=== PATIENT | female | born 1975 | race African-American/Black ===

== ENCOUNTER 2018-02-14 08:28 | Emergency (ER) | payer SELFPAY ==
[~2018-02-14] VITALS: Ht 157.5 cm; Wt 108.0 kg
[2018-02-14] MEDS ORDERED: KETOROLAC TROMETHAMINE 60 MG/2 ML VIAL IM ONE (09:00)
--- NOTE | 2018-02-14 10:09 | Diagnostic Imaging Report ---
Examination: CT head without contrast Clinical Indication: Severe headache; left temporal head pain. Technique: Transaxial noncontrast images from the skull base through the vertex were obtained. Sagittal and coronal reformatted images were done. Dose modulation, iterative reconstruction, and/or weight based adjustment of the mA/kV was utilized to reduce the radiation dose to as low as reasonably achievable. Comparison: None. Findings: Scalp: No abnormalities. Bones: Intact. No fractures. No blastic or lytic lesions. Brain sulci: Appropriate for patient's age. Ventricles: Normal in size and configuration. No hydrocephalus. Extra-axial space: No abnormalities. Parenchyma: No abnormal densities. No masses, hemorrhage, or acute or chronic cortical based vascular insults. Suprasellar region: No abnormalities. Craniocervical junction: The foramen magnum is patent. No Chiari one malformation. Impression: No intracranial abnormality. Signed by: Dr. Ester Hassan M.D. on 02/14/2018 10:05 AM
[2018-02-14 11:43] VITALS: BP 150/93
== END 2018-02-14 11:53 | disposition home or self-care (01) ==
LOC: ER 08:28
DX: G44.89 Other headache syndrome (principal); G50.0 Trigeminal neuralgia; J44.9 Chronic obstructive pulmonary disease, unspecified
CPT/HCPCS: 70450; 99283; J1885

== ENCOUNTER 2018-11-02 22:44 | Emergency (ER) | payer OTHER ==
[~2018-11-02] VITALS: Ht 157.5 cm; Wt 108.0 kg
--- OUTSIDE RECORDS SUMMARY | 2018-11-02 22:47 | XMS REPORT ---
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 Problem Name Problem Code Onset Date Status Entry Date Provider Comment Standard Description Annotate Annual exam V72.31 Active Dianna Fonseca MD Routine gynecological examination Mammogram yearly screening V76.12 Active Dianna Fonseca MD Other screening mammogram MORBID OBESITY Active Dianna Fonseca MD Morbid obesity Screening for cervical cancer V76.2 Active Dianna Fonseca MD Screening for malignant neoplasms of the cervix Screening for diabetes mellitus V77.1 Active Dianna Fonseca MD Screening for diabetes mellitus Screening for hyperlipidemia V77.91 Active Dianna Fonseca MD Screening for lipoid disorders Medication List Medication Instructions Start Date Stop Date Generic Name NDC Status Provider Patient Instruction No Drug Therapy Prescribed - none known did ask Dianna Fonseca MD Vital Signs Date Name Value Unit Range Description blood pressure, diastolic 86 mm[Hg] BP saab blood pressure, systolic 129 mm[Hg] BP sys height E&M 61.75 [in_us] Bdy height pulse rate E&M 85 /min Heart rate respiratory rate E&M 18 /min Resp rate temperature E&M 98 [degF] Body temperature weight E&M 249 [lb_av] Weight Measured Diagnostic Results Date Name Value Unit Range Description Lab Report: Chlamydia/GC Amplification - Microbiology Neisseria gonorrhoeae DNA probe Negative Negative Lab Report: Lipid Panel, Chlamydia/GC Amplification, Hemoglobin A1c - Chemistry cholesterol, serum 154 mg/dL [id number] 7807/04/29 LDL cholesterol, serum 76 mg/dL 0-99 hemoglobin A1C, blood, as % of total hemoglobin 5.7 % 4.8-5.6 triglyceride, serum, fasting 73 mg/dL 0-149 HDL cholesterol, serum 63 mg/dL >39 Lab Report: Chlamydia/GC Amplification - Lab chlamydia DNA probe Negative Negative Lab Report: Lipid Panel, Chlamydia/GC Amplification, Hemoglobin A1c - Chemistry very low density lipoproteins 15 mg/dL 5-40 Procedures Code Procedure Name Date Entry Date Standard Description [id number] New Patient Well Exam (40 - 64 Yrs) - [address]2948 10:59:25 CDT
--- OUTSIDE RECORDS SUMMARY | 2018-11-02 22:47 | XMS REPORT ---
Author Author [facility] Address Unknown Phone Unavailable Care Team Providers Care Equipment Sterilizer Name Role Phone Shant OCAMPO Unavailable Unavailable Problems This patient has no known problems. Allergies, Adverse Reactions, Alerts This patient has no known allergies or adverse reactions. Medications This patient has no known medications. Results Test Description Test Time Test Comments Text Results Atomic Results Result Comments CT BRAIN WO 2018-02-14 10:03:00 [place] [address] Patient Name: MARLEN GÓMEZ MR #: [id number] : 1975 Age/Sex: 42/F Req #: [id number] Adm Physician: Ordered by: AUSTIN OCAMPO MD Report #: [id number] Location: ER Room/Bed: Procedure: [id number] CT/CT BRAIN WO Exam Date: 02/14/18 Exam Time: 0934 REPORT STATUS: Signed Examination: CT head without contrast Clinical Indication: Severe headache; left temporal head pain. Technique: Transaxial noncontrast images from the skull base through the vertex were obtained. Sagittal and coronal reformatted images were done. Dose modulation, iterative reconstruction, and/or weight based adjustment of the mA/kV was utilized to reduce the radiation dose to as low as reasonably achievable. Comparison: None. Findings: Scalp: No abnormalities. Bones: Intact. No fractures. No blastic or lytic lesions. Brain sulci: Appropriate for patient's age. Ventricles: Normal in size and configuration. No hydroc ephalus. Extra-axial space: No abnormalities. Parenchyma: No abnormal densities. No masses, hemorrhage, or acute or chronic cortical based vascular insults. Suprasellar region: No abnormalities. Craniocervical junction: The foramen magnum is patent. No Chiari one malformation. Impression: No intracranial abnormality. Signed by: Dr. Ester Zarate M.D. on 02/14/2018 10:05 AM Dictated By: ESTER ZARATE MD [id number] Transcribed By: RICHARD on 02/14/18 1005 COPY TO: AUSTIN OCAMPO MD
[2018-11-02] MEDS ORDERED: ACETAMIN/BUTALBITAL/CAFFEINE TAB ONE (23:11)
[2018-11-02] MEDS ORDERED: ONDANSETRON HCL 4 MG ORAL DISINTEGRATING TAB ONE (23:11)
[2018-11-02] MEDS ORDERED: KETOROLAC TROMETHAMINE 60 MG/2 ML VIAL ONE (23:11)
[2018-11-02] MEDS ORDERED: ONDANSETRON HCL 4 MG ORAL DISINTEGRATING TAB PO ONE (23:15)
[2018-11-02] MEDS ORDERED: ACETAMIN/BUTALBITAL/CAFFEINE TAB PO ONE (23:15)
[2018-11-02] MEDS ORDERED: KETOROLAC TROMETHAMINE 60 MG/2 ML VIAL IM ONE (23:15)
== END 2018-11-03 00:10 | disposition home or self-care (01) ==
LOC: ER 22:44
DX: G43.009 Migraine without aura, not intractable, without status migrainosus (principal); F41.9 Anxiety disorder, unspecified
CPT/HCPCS: 96372; 99283; J1885; Q0162